=== PATIENT | male | born 2000 | race Caucasian/White ===

== ENCOUNTER 2024-09-25 19:16 | Emergency (ER) | payer OTHER ==
[~2024-09-25] VITALS: Ht 177.8 cm; Wt 104.3 kg
[2024-09-25 19:42] VITALS: BP_SYST 133; PULSE 70; RESP 20; TEMP 98; O2SAT 98
[2024-09-25 21:55] LABS: MONOTEST NEGATIVE (NEGATIVE)
[2024-09-25 22:14] LABS: COVID19 ANTIGEN SOFIA FIA NEGATIVE (NEGATIVE); INFLUENZA TYPE A NEGATIVE (NEGATIVE); STREPTOCOCCUS A SCREEN (RAPID) NEGATIVE (NEGATIVE)
[2024-09-25 22:15] LABS: INFLUENZA TYPE B NEGATIVE (NEGATIVE)
== END 2024-09-25 23:15 | disposition home or self-care (01) ==
LOC: SED 19:16
DX: L29.9 Pruritus, unspecified (principal); T78.49XA Other allergy, initial encounter; J02.9 Acute pharyngitis, unspecified; R21 Rash and other nonspecific skin eruption; Z20.822 Contact with and (suspected) exposure to COVID-19; X58.XXXA Exposure to other specified factors, initial encounter
CPT/HCPCS: 36415; 86308; 86403; 87081; 99283